=== PATIENT | female | born 1965 | race Caucasian/White ===

== ENCOUNTER 2018-06-20 07:56 | Outpatient (CLI) | payer BC | END 2018-06-20 07:57 | disposition home or self-care (01) | LOC: BICMAMMO 07:56 | PROVIDERS: ATTEND Nurse Practitioner Family | DX: Z12.31 Encounter for screening mammogram for malignant neoplasm of breast (principal); Z80.3 Family history of malignant neoplasm of breast | CPT/HCPCS: 77063; 77067 ==

== ENCOUNTER 2020-04-09 08:48 | Outpatient (CLI) | payer OTHER ==
--- NOTE | 2020-04-09 09:48 | BD ---
EXAM: Bone densitometry using DEXA HISTORY: 54 yo female. Screening for postmenopausal osteoporosis FINDINGS: L1--bone mineral density 0.996 g/sq cm; T score 0.1 ; Z score 0.9 L2--bone mineral density 0.975 g/sq cm; T score -0.5 ; Z score 0.5 L3--bone mineral density 1.001 g/sq cm; T score -0.8 ; Z score 0.3 L4--bone mineral density 1.212 g/sq cm; T score 1.4 ; Z score 2.4 Total L1-L4--bone mineral density 1.055 g/sq cm; T score 0.1 ; Z score 1.1 Left femoral neck--bone mineral density0.753; T score -0.9 ; Z score 0.1 Total proximal left femur--bone mineral density 1.002; T score 0.5 ; Z score 1.1 IMPRESSION: Normal BMD
--- NOTE | 2020-04-09 11:27 | MMO ---
Bilateral MAMMO Bilat Screen [facility]. CLINICAL HISTORY: Patient is 54 years old and is seen for screening. The patient has the following family history of breast cancer: maternal grandmother, malignant (generic). The patient has no personal history of cancer. VIEWS: The views performed were: bilateral craniocaudal with tomosynthesis and bilateral mediolateral oblique with tomosynthesis. FILMS COMPARED: The present examination has been compared to prior imaging studies performed at [facility] [place] on 03/22/2016, 03/16/2017 and 06/20/2018, and at [facility] on 06/20/2015. This study has been interpreted with the assistance of computer-aided detection. MAMMOGRAM FINDINGS: There are scattered fibroglandular densities. There are no suspicious masses, suspicious calcifications, or new areas of architectural distortion. IMPRESSION: THERE IS NO MAMMOGRAPHIC EVIDENCE OF MALIGNANCY. A ROUTINE FOLLOW-UP MAMMOGRAM IN 1 YEAR IS RECOMMENDED. THE RESULTS OF THIS EXAM WERE SENT TO THE PATIENT. ACR BI-RADS Category 1 - Negative MAMMOGRAPHY NOTE: 1. A negative mammogram report should not delay a biopsy if a dominant of clinically suspicious mass is present. 2. Approximately 10% to 15% of breast cancers are not detected by mammography. 3. Adenosis and dense breasts may obscure an underlying neoplasm. Reported by: MAYI KUMARI MD Electonically Signed: [id number]
== END 2020-04-09 08:49 | disposition home or self-care (01) ==
LOC: BICMAMMO 08:48
PROVIDERS: ATTEND Nurse Practitioner Family
DX: Z12.31 Encounter for screening mammogram for malignant neoplasm of breast (principal); Z80.3 Family history of malignant neoplasm of breast
CPT/HCPCS: 77063; 77067; 77080